=== PATIENT | male | born 1940 | race Caucasian/White ===

== ENCOUNTER → 2023-09-07 | Emergency (ER) | payer OTHER ==
--- NOTE | 2023-09-07 16:48 | RAD REPORT ---
EXAM DESCRIPTION: RAD - Hip Left 2 View - 09/07/2023 4:28 pm CLINICAL HISTORY: PAIN COMPARISON: Femur Left dated 09/07/2023 TECHNIQUE: Left hip, AP and frogleg views of the left hip. FINDINGS: There is no fracture or dislocation. No acute or destructive bony process seen. IMPRESSION: No acute findings of the left hip.
--- NOTE | 2023-09-07 16:50 | RAD REPORT ---
EXAM DESCRIPTION: RAD - Femur Left - 09/07/2023 4:29 pm CLINICAL HISTORY: PAIN COMPARISON: Knee Left 2 View dated 09/07/2023 TECHNIQUE: Left femur, 2 views. FINDINGS: No fracture is identified. There is no dislocation or periosteal reaction noted. Moderate degenerative changes of the knee with medial weight-bearing joint space narrowing. No acute or suspi cious bony finding. Soft tissue swelling about the lateral aspect of the knee. IMPRESSION: No acute osseus abnormality. Soft tissue swelling along the lateral aspect of the knee. Moderate degenerative changes.
--- NOTE | 2023-09-07 16:52 | RAD REPORT ---
EXAM DESCRIPTION: RAD - Knee Left 2 View - 09/07/2023 4:29 pm CLINICAL HISTORY: PAIN COMPARISON: Femur Left dated 09/07/2023; Hip Left 2 View dated 09/07/2023 TECHNIQUE: Left knee, 3 views. FINDINGS: No fracture, dislocation or periosteal reaction.Moderate joint effusion seen. Moderate kne e joint degenerative changes with joint space narrowing medially. Soft tissue swelling along the late ral aspect of the knee. IMPRESSION: No acute osseus abnormality. Mild joint effusion. Moderate degenerative changes as above .
--- NOTE | 2023-09-07 17:05 | RAD REPORT ---
EXAM DESCRIPTION: CT - [id number] - 09/07/2023 3:50 pm CLINICAL HISTORY: TRAUMA COMPARISON: No comparisons TECHNIQUE: Axial thin cut noncontrast CT images of the head were obtained. Axial thin cut noncontrast CT images of the cervical spine were obtained. Multiplanar reformatted images were generated and reviewed. All CT scans are performed using dose optimization technique as appropriate and may include automated exposure control or mA/KV adjustment according to patient size. FINDINGS: CT HEAD WITHOUT CONTRAST: No acute hemorrhage, hydrocephalus or mass effect is identified.Moderate diffuse parenchymal volume l oss. Bilateral frontoparietal hypodense collections approximating CSF, measuring 6 mm in thickness on the left and 4 mm in thickness on the right.No areas of brain edema or midline shift. The paranasal sinuses and mastoids are clear.The calvarium is intact. CT CERVICAL SPINE WITHOUT CONTRAST: No fracture or subluxation.Degenerative changes, most pronounced at C4-5 where endplate and uncoverte bral joint spurring contribute to up to moderate bilateral neural foraminal narrowing and mild centra l canal stenosis.No prevertebral soft tissues swelling is identified. IMPRESSION: Bilateral frontoparietal extra-axial hypodense collections, suggesting chronic subdural hemorrhages or hygromas, up to 6 mm in thickness on the left and 4 mm in thickness on the right. No other evidence of acute traumatic intracranial or cervical spine findings. Cervical spine degenerative changes as above.
--- NOTE | 2023-09-07 17:08 | EDPHYS ---
Physician Documentation [facility] Name: Bryn Catalan Age: 82 yrs Sex: Male : 1940 Arrival Date: 09/07/2023 Time: 15:16 Bed 15 Private MD: ED Physician Prem Talamantes HPI: 09/06 15:20 This 82 yrs old Male presents to ER via Unassigned with complaints of leg pain. sb4 15:20 prison states that patient had an unwitnessed fall earlier today. Unclear if sb4 there was any head trauma. Patient is only complaining of pain to his left hip, thigh, and knee. Patient is oriented x 1 at baseline. He is on blood thinners. Historical: - Allergies: 15:24 No Known Allergies; kc6 - PMHx: 15:24 Anemia; Atrial Fib; Atrial fibrillation; Cerebrovascular accident; Chronic obstructive kc6 lung disease; Dementia; diabetes mellitus; Hypertension; Hypertensive disorder; - Immunization history:: Adult Immunizations unknown. - Social history:: Smoking status: unknown. ROS: 15:20 Constitutional: Negative for fever, chills, and weight loss, sb4 15:20 MS/extremity: Positive for pain, of the left leg, 15:20 All other systems are negative, Exam: 15:20 Constitutional: The patient appears in no acute distress, alert, awake, obese, sb4 15:20 Musculoskeletal/extremity: ROM: limited active range of motion due to pain, limited passive range of motion due to pain, Circulation is intact in all extremities. Pulses: are normal with no appreciated deficits, Perfusion: the extremity is normally perfused throughout, Sensation intact. Tenderness to palpation of left knee and thigh, no shortening or rotation noted. 15:20 Neuro: Orientation: no acute changes, per EMS, to person, 15:30 Head/Face: Normocephalic, atraumatic. Skin: Warm, dry with normal turgor. Normal sb4 color with no rashes, no lesions, and no evidence of cellulitis. 15:30 Eyes: Periorbital structures: appear normal, Pupils: pinpoint, bilaterally, Vital Signs: 15:23 BP 126 / 82; Pulse 86; Resp 20 S; Temp 98.7(O); Pulse Ox 96% on R/A; Weight 151.95 kg kc6 (R); Height 6 ft. 1 in. (R); 16:46 BP 100 / 51; Pulse 69; Resp 18 S; Pulse Ox 97% on R/A; 6 17:30 BP 110 / 77; Pulse 88; Resp 18 S; Pulse Ox 95% on R/A; 6 19:00 BP 118 / 107; Pulse 68; Resp 22 S; Pulse Ox 95% on R/A; jw7 20:00 BP 126 / 105; Pulse 78; Resp 20 S; Pulse Ox 97% on R/A; jw7 21:00 BP 127 / 112; Pulse 80; Resp 22 S; Pulse Ox 97% on R/A; jw7 22:00 BP 109 / 93; Pulse 76; Resp 21 S; Pulse Ox 98% on R/A; 7 23:00 BP 135 / 81; Pulse 83; Resp 22 S; Pulse Ox 97% on R/A; [facility] 09/07 01:00 BP 156 / 75; Pulse 85; Resp 20 S; Pulse Ox 98% on R/A; [facility] 09/06 15:23 Body Mass Index 44.20 (151.95 kg, 185.42 cm) [facility] MDM: 09/06 15:18 Patient medically screened. sb4 15:20 Differential diagnosis: dislocation, closed fracture, contusion. sb4 17:07 Data reviewed: vital signs, nurses notes, radiologic studies, and as a result, I will sb4 discharge patient. Counseling: I had a detailed discussion with the patient and/or guardian regarding the historical points, exam findings, and any diagnostic results supporting the discharge/admit diagnosis, radiology results, to return to the emergency department if symptoms worsen or persist or if there are any questions or concerns that arise at home. 09/06 15:19 Order name: Hip Left 2 View XRAY; Complete Time: 16:50 sb4 09/06 15:19 Order name: Femur Left XRAY; Complete Time: 16:52 sb4 09/06 15:19 Order name: Head C Spine MPR Wo Con CT; Complete Time: 17:07 sb4 09/06 16:29 Order name: Knee Left 2 View; Complete Time: 16:53 EDMS Administered Medications: No medications were administered Disposition Summary: 09/07/23 17:08 Discharge Ordered Notes: Location: Home sb4 Problem: new sb4 Symptoms: are unchanged sb4 Condition: Stable sb4 Diagnosis - Contusion of left knee sb4 Followup: sb4 - With: Emergency Department - When: As needed - Reason: Trouble breathing, Worsening of condition Discharge Instructions: - Discharge Summary Sheet sb4 - Acute Knee Pain, Adult, [id number] sb4 Forms: - Thank You Letter sb4 - Patient Portal Instructions sb4 - Leadership Thank You Letter sb4 Addendum: 09/09/2023 14:27 I was immediately available for consultation during this patient's visit. I did not e c2 personally see the patient or discuss the patient with the KEON. . Signatures: Dispatcher [employer] Claritza Bravo RN RN kc6 Edyta Tang PA-C PA-C sb4 Prem Talamantes MD MD ec2 Corrections: (The following items were deleted from the chart) 09/06 16:29 15:20 Knee Left 3 View+RAD.RAD.BRZ ordered. JENNA WEST
--- NOTE | 2023-09-07 17:08 | ER ---
Nurse's Notes [facility] Name: Bryn Catalan Age: 82 yrs Sex: Male : 1940 Arrival Date: 09/07/2023 Time: 15:16 Bed 15 Private MD: Diagnosis: Contusion of left knee Presentation: 09/06 15:23 Chief complaint: EMS states: pt had an unwitnessed fall with unknown LOC at [address] pt takes Eliquis daily. pt reports left leg/hip pain. 30mg of Toradol IM given en route. Coronavirus screen: At this time, the client does not indicate any symptoms associated with coronavirus-19. Ebola Screen: No symptoms or risks identified at this time. Initial Sepsis Screen: Does the patient meet any 2 criteria? Altered Mental Status. Does the patient have a suspected source of infection? No. Patient's initial sepsis screen is negative. Risk Assessment: Do you want to hurt yourself or someone else? Patient reports no desire to harm self or others. Onset of symptoms was September 07, 2023. 15:23 Method Of Arrival: EMS: [place] [id number] 15:23 Acuity: SCARLETT 3 6 Triage Assessment: 15:24 General: Appears in no apparent distress. comfortable, obese, well groomed, well kc6 developed, Behavior is calm, cooperative, appropriate for age. Pain: Complains of pain in left leg. EENT: No signs and/or symptoms were reported regarding the EENT system. Neuro: Level of Consciousness is awake, alert, obeys commands, confused, Oriented to person, situation, Appropriate for age Pupils are pinpoint. Cardiovascular: Denies chest pain, Heart tones S1 S2 present Capillary refill < 3 seconds Rhythm is atrial fibrillation With PVC's. Respiratory: Airway is patent Trachea midline Respiratory effort is even, unlabored, Respiratory pattern is regular, symmetrical, Denies shortness of breath. GI: No signs and/or symptoms were reported involving the gastrointestinal system. : No signs and/or symptoms were reported regarding the genitourinary system. Derm: No signs and/or symptoms reported regarding the dermatologic system. Skin is intact, is healthy with good turgor, Skin is dry, Skin is pale, Skin temperature is cool. Musculoskeletal: Range of motion: limited in left hip. Historical: - Allergies: 15:24 No Known Allergies; kc6 - PMHx: 15:24 Anemia; Atrial Fib; Atrial fibrillation; Cerebrovascular accident; Chronic obstructive kc6 lung disease; Dementia; diabetes mellitus; Hypertension; Hypertensive disorder; - Immunization history:: Adult Immunizations unknown. - Social history:: Smoking status: unknown. Screenin:27 [facility] ED Fall Risk Assessment (Adult) History of falling in the last 3 months, kc6 including since admission Yes- fall prone (multiple falls) (3 pts) Confusion or Disorientation Yes (5 pts) Intoxicated or Sedated No (0 pts) Impaired Gait Yes (1 pt) Mobility Assist Device Used Yes (1 pt) Altered Elimination No (0 pt) Score/Fall Risk Level 3 or more points = High Risk. Abuse screen: Denies threats or abuse. Denies injuries from another. Nutritional screening: No deficits noted. Tuberculosis screening: No symptoms or risk factors identified. Assessment: 15:27 Reassessment: please see triage. kc6 16:27 Reassessment: Patient appears in no apparent distress at this time. No changes from kb3 previously documented assessment. Patient and/or family updated on plan of care and expected duration. Pain level reassessed. 17:29 Reassessment: Patient appears in no apparent distress at this time. No changes from kc6 previously documented assessment. Patient and/or family updated on plan of care and expected duration. Pain level reassessed. nurse to nurse report given to EMMANUEL Aguirre at [facility]. states she will arrange transport. ETA 1hr. 19:00 General: Appears in no apparent distress. comfortable, Behavior is calm, cooperative, jw7 appropriate for age. Pain: Denies pain. Neuro: Level of Consciousness is awake, alert, obeys commands, Oriented to Appropriate for age. Cardiovascular: Heart tones S1 S2 present Capillary refill < 3 seconds Clubbing of nail beds is absent JVD is absent Patient's skin is warm and dry. Respiratory: Airway is patent Trachea midline Respiratory effort is even, unlabored, Respiratory pattern is regular, symmetrical, Breath sounds are clear bilaterally. GI: Abdomen is round non-distended, Bowel sounds present X 4 quads. Abd is soft and non tender X 4 quads. 19:00 : No deficits noted. No signs and/or symptoms were reported regarding the jw7 genitourinary system. EENT: No deficits noted. No signs and/or symptoms were reported regarding the EENT system. Derm: Skin is intact, is healthy with good turgor, Skin is dry, Skin is normal, Skin temperature is warm. Musculoskeletal: Circulation, motion, and sensation intact. Range of motion: limited in left hip and left leg. 19:00 General: Discharge pending pick transportation to [facility]. jw7 20:00 Reassessment: Patient appears in no apparent distress at this time. No changes from jw7 previously documented assessment. Patient and/or family updated on plan of care and expected duration. Pain level reassessed. 21:00 Reassessment: Patient appears in no apparent distress at this time. No changes from jw7 previously documented assessment. Patient and/or family updated on plan of care and expected duration. Pain level reassessed. 21:33 General: Talked to [facility] about transport for patient, EMS will picking tech in 2 jw7 hours, with ETA 2330. . 22:00 Reassessment: Patient appears in no apparent distress at this time. No changes from jw7 previously documented assessment. Patient and/or family updated on plan of care and expected duration. Pain level reassessed. 23:00 Reassessment: Patient appears in no apparent distress at this time. No changes from jw7 previously documented assessment. Patient and/or family updated on plan of care and expected duration. Pain level reassessed. 23:57 General: [facility] called with ETA of 0130 due to "needing a bigger stretcher". jw7 09/07 00:00 Reassessment: Patient appears in no apparent distress at this time. No changes from jw7 previously documented assessment. Patient and/or family updated on plan of care and expected duration. Pain level reassessed. Patient is alert, oriented x 3, equal unlabored respirations, skin warm/dry/pink. 01:25 Reassessment: Patient appears in no apparent distress at this time. No changes from jw7 previously documented assessment. Patient and/or family updated on plan of care and expected duration. Pain level reassessed. Patient is alert, oriented x 3, equal unlabored respirations, skin warm/dry/pink. Vital Signs: 09/06 15:23 BP 126 / 82; Pulse 86; Resp 20 S; Temp 98.7(O); Pulse Ox 96% on R/A; Weight 151.95 kg kc6 (R); Height 6 ft. 1 in. (R); 16:46 BP 100 / 51; Pulse 69; Resp 18 S; Pulse Ox 97% on R/A; kc6 17:30 BP 110 / 77; Pulse 88; Resp 18 S; Pulse Ox 95% on R/A; kc6 19:00 BP 118 / 107; Pulse 68; Resp 22 S; Pulse Ox 95% on R/A; jw7 20:00 BP 126 / 105; Pulse 78; Resp 20 S; Pulse Ox 97% on R/A; jw7 21:00 BP 127 / 112; Pulse 80; Resp 22 S; Pulse Ox 97% on R/A; jw7 22:00 BP 109 / 93; Pulse 76; Resp 21 S; Pulse Ox 98% on R/A; jw7 23:00 BP 135 / 81; Pulse 83; Resp 22 S; Pulse Ox 97% on R/A; jw7 09/07 01:00 BP 156 / 75; Pulse 85; Resp 20 S; Pulse Ox 98% on R/A; jw7 09/06 15:23 Body Mass Index 44.20 (151.95 kg, 185.42 cm) [facility] ED Course: 09/06 15:18 Patient arrived in ED. sb4 15:18 Edyta Tang PA-C is PHCP. sb4 15:18 Prem Talamantes MD is Attending Physician. sb4 15:22 Claritza Sanchez, EMMANUEL is Primary Nurse. kc6 15:24 Triage completed. kc6 15:24 Arm band placed on. kc6 15:27 Patient maintains SpO2 saturation greater than 95% on room air. kc6 15:28 Patient has correct armband on for positive identification. Placed in gown. Bed in low kc6 position. Call light in reach. Side rails up X2. Client placed on continuous cardiac and pulse oximetry monitoring. NIBP monitoring applied. child monitor on. 15:49 Head C Spine MPR Wo Con CT In Process Unspecified. EDMS 16:29 Knee Left 2 View In Process Unspecified. EDMS 16:30 Hip Left 2 View XRAY In Process Unspecified. EDMS 16:30 Femur Left XRAY In Process Unspecified. EDMS 19:00 Provided Education on: Use of Call Light. jw7 23:08 No provider procedures requiring assistance completed. jw7 09/07 01:27 Patient did not have IV access during this emergency room visit. jw7 Administered Medications: No medications were administered Medication: 09/06 23:08 VIS not applicable for this client. jw7 Outcome: 17:08 Discharge ordered by MD. reyes 09/07 01:27 Discharged to [facility]. jw7 Condition: stable Discharge instructions given to patient, [facility], Instructed on discharge instructions, follow up and referral plans. Demonstrated understanding of instructions, follow-up care, 01:28 Patient left the ED. jw7 Signatures: Dispatcher [employer] EDMS Yana West RN RN jw7 Claritza Sanchez RN RN kc6 Laurence Vicente, RN RN kb3 Edyta Tang, PA-C PA-C sb4
[2023-09-08 02:15] VITALS: BP 156/75; TEMP 98.7; O2SAT 98
== END ==
LOC: ER 15:16
DX: S80.02XA Contusion of left knee, initial encounter (principal); W18.30XA Fall on same level, unspecified, initial encounter; F03.90 Unspecified dementia, unspecified severity, without behavioral disturbance, psychotic disturbance, mood disturbance, and anxiety; I10 Essential (primary) hypertension
CPT/HCPCS: 70450; 72125